=== PATIENT | male | born 1960 | race Two or more races ===

== ENCOUNTER 2021-01-24 18:53 | Inpatient (IN) | payer BC ==
[~2021-01-24] VITALS: Ht 160 cm; Wt 64.0 kg
[2021-01-24] MEDS ORDERED: SODIUM CHLORIDE 0.9% 1,000 ML IV ONE (21:45)
[2021-01-24 22:46] LABS: BASOPHILS % 1.1 % (0.0-2.0); HEMATOCRIT. 41.9 % (42.0-52.0); HEMOGLOBIN. 14.6 g/dL (14.0-18.0); LYMPHOCYTES % 40.4 % (20.0-50.0); MEAN CORPUSCULAR HEMOGLOBIN 32.1 pg (28.0-32.0); MEAN PLATELET VOLUME 9.3 fl (7.4-10.4); MONOCYTES % 10.1 % (2.0-8.0); NEUTROPHILS % 45.4 % (40.0-76.0); PLATELET 236 x1000/uL (130-400); RED BLOOD CELL COUNT 4.56 mill/uL (4.7-6.1); RED CELL DISTRIBUTION WIDTH 12.4 % (11.6-14.6)
[2021-01-24 22:53] LABS: CHLORIDE 106 mEq/L (98-107)
[2021-01-24 22:56] LABS: INR 0.9; PROTHROMBIN TIME 9.8 sec (9.6-11.0)
[2021-01-24 22:57] LABS: ETHANOL BLOOD < 10 mg/dL
[2021-01-25 01:27] LABS: CLARITY URINE CLEAR (CLEAR); COLOR URINE YELLOW (YELLOW); KETONES URINE NEGATIVE (NEGATIVE); LEUKOCYTE ESTERASE URINE NEGATIVE (NEGATIVE); NITRITE URINE NEGATIVE (NEGATIVE); OCCULT BLOOD URINE 1+ (NEGATIVE); PH URINE 5.5 (4.5-8.0); PROTEIN URINE NEGATIVE (NEGATIVE); SPECIFIC GRAVITY URINE 1.042 (1.005-1.030); UROBILINOGEN URINE 0.2 E.U./dL (0.2-1.0)
[2021-01-25 01:41] LABS: CANNABINOID URINE SCREEN NEGATIVE (NEGATIVE); OPIATES URINE SCREEN NEGATIVE (NEGATIVE); PHENCYCLIDINE URINE SCREEN NEGATIVE (NEGATIVE)
[2021-01-25 01:43] LABS: *AMPHETAMINES SCREEN URINE NEGATIVE (NEGATIVE); *BARBITURATES SCREEN URINE NEGATIVE (NEGATIVE); *BENZODIAZEPINES SCREEN URINE NEGATIVE (NEGATIVE); *COCAINE SCREEN URINE NEGATIVE (NEGATIVE); METHADONE URINE SCREEN NEGATIVE (NEGATIVE)
[2021-01-25] MEDS ORDERED: IOHEXOL-350 100 ML BOTTLE ONE (05:35)
[2021-01-25 09:00] VITALS: BP 120/80
[2021-01-25 09:56] VITALS: BP 120/80
[2021-01-25] MEDS ORDERED: ONDANSETRON HCL 4MG/2ML INJ IV PRN (10:00)
[2021-01-25] MEDS ORDERED: DEXTROSE 50% WATER 50ML SYRINGE IV PRN (10:00)
[2021-01-25] MEDS ORDERED: GLIM4TAB36 PO (10:10)
[2021-01-25] MEDS ORDERED: METF-416 PO (10:10)
[2021-01-25] MEDS: ENOXAPARIN 40MG/0.4ML SYR SUBCUT SCH (11:15)
[2021-01-25] MEDS: BLOOD SUGAR DIAGNOSTIC STRIP TEST SCH ×3 (11:37→20:43)
[2021-01-25 12:00] VITALS: BP 138/81
[2021-01-25] MEDS: INSULIN LISPRO 100 UNITS/ML SUBCUT SCH ×3 (12:11→20:43)
[2021-01-25 16:00] VITALS: BP 112/72
[2021-01-25] MEDS ORDERED: IOHEXOL-300 100 ML BOTTLE ONE (18:00)
[2021-01-25 20:00] VITALS: BP 105/67
[2021-01-25] MEDS: ATORVASTATIN CALCIUM 40MG TABLET PO SCH (20:42)
[2021-01-26] VITALS: BP 126/79
[2021-01-26 04:00] VITALS: BP 128/80
[2021-01-26] MEDS: INSULIN LISPRO 100 UNITS/ML SUBCUT SCH ×4 (06:27→20:45)
[2021-01-26] MEDS: BLOOD SUGAR DIAGNOSTIC STRIP TEST SCH ×4 (06:29→20:45)
[2021-01-26 07:20] LABS: CHLORIDE 99 mEq/L (98-107)
[2021-01-26 07:43] LABS: EOSINOPHILS % 3.3 % (0.0-5.0); HEMOGLOBIN. 15.6 g/dL (14.0-18.0); MEAN CORPUSCULAR VOLUME 92.4 fL (80.0-94.0); MEAN PLATELET VOLUME 9.1 fl (7.4-10.4); MONOCYTES % 9.9 % (2.0-8.0); NEUTROPHILS % 56.8 % (40.0-76.0); PLATELET 265 x1000/uL (130-400); RED BLOOD CELL COUNT 4.87 mill/uL (4.7-6.1); RED CELL DISTRIBUTION WIDTH 12.5 % (11.6-14.6)
[2021-01-26] MEDS ORDERED: GADOTERATE MEGLUMINE 5 MMOL/10 ML VIAL IV ONE (07:53)
[2021-01-26 08:00] VITALS: BP 122/79
[2021-01-26] MEDS: ASPIRIN 81MG TABLET PO SCH (09:19)
[2021-01-26] MEDS: ENOXAPARIN 40MG/0.4ML SYR SUBCUT SCH (09:19)
[2021-01-26 12:00] VITALS: BP 109/75
[2021-01-26] MEDS ORDERED: ACETAMINOPHEN 325MG TABLET PO PRN (13:45)
[2021-01-26 16:00] VITALS: BP 112/76
[2021-01-26] MEDS ORDERED: ASPI-1160 PO (16:35)
[2021-01-26] MEDS ORDERED: LIP40 PO (16:35)
[2021-01-26] MEDS ORDERED: INSULIN GLARGINE UD 100 UNITS/ML SYR SUBCUT NR (18:00)
[2021-01-26 20:00] VITALS: BP_SYST 93; BP_SYST 98; BP_DIAS 52; BP_DIAS 65
[2021-01-26] MEDS: ATORVASTATIN CALCIUM 40MG TABLET PO SCH (20:45)
[2021-01-27] VITALS: BP 112/71
[2021-01-27 04:00] VITALS: BP 107/73
[2021-01-27] MEDS: INSULIN LISPRO 100 UNITS/ML SUBCUT SCH ×3 (06:22→16:58)
[2021-01-27] MEDS: BLOOD SUGAR DIAGNOSTIC STRIP TEST SCH ×3 (06:22→16:38)
[2021-01-27] MEDS ORDERED: GLIMEPIRIDE 1MG TABLET PO SCH (06:40)
[2021-01-27 08:00] VITALS: BP 118/80
[2021-01-27] MEDS: ASPIRIN 81MG TABLET PO SCH (08:34)
[2021-01-27] MEDS: ENOXAPARIN 40MG/0.4ML SYR SUBCUT SCH (08:35)
[2021-01-27 12:00] VITALS: BP 114/75
[2021-01-27 16:00] VITALS: BP 110/78
[2021-01-27 17:18] VITALS: BP 110/78
== END 2021-01-27 18:19 | disposition home or self-care (01) | DRG 64 ==
LOC: ER 18:53 → EDBEDREQDT 01-25 01:12 → EDBEDREQTM 01-25 01:12 → EDBEDREQ 01-25 01:12 → MICUSO 01-25 02:57 → 7EST 01-25 08:05
PROVIDERS: ADMIT Internal Medicine; ATTEND Internal Medicine
PROC: 4A10X4Z Monitoring of Central Nervous Electrical Activity, External Approach (ICD-10-PCS; principal; 2021-01-27)
DX: I63.9 Cerebral infarction, unspecified (principal); G93.41 Metabolic encephalopathy; G81.94 Hemiplegia, unspecified affecting left nondominant side; I16.0 Hypertensive urgency; E11.65 Type 2 diabetes mellitus with hyperglycemia; I10 Essential (primary) hypertension; J43.9 Emphysema, unspecified; J47.9 Bronchiectasis, uncomplicated; K80.20 Calculus of gallbladder without cholecystitis without obstruction; K76.0 Fatty (change of) liver, not elsewhere classified; R29.810 Facial weakness; Z82.49 Family history of ischemic heart disease and other diseases of the circulatory system; Z86.11 Personal history of tuberculosis; Z86.73 Personal history of transient ischemic attack (TIA), and cerebral infarction without residual deficits; Z79.899 Other long term (current) drug therapy; Z79.84 Long term (current) use of oral hypoglycemic drugs; Z79.4 Long term (current) use of insulin; Z79.82 Long term (current) use of aspirin
CPT/HCPCS: 36415; 70496; 70553; 71045; 71260; 80048; 80053; 80061; 80305; 80320; 81003; 82140; 82962; 83036; 83880; 84443; 84484; 85025; 93005; 93880; 95816; 97162; 97166; 99285; A9577; J1650; J1815; J7030; Q9967; G0480